=== PATIENT | female | born 1975 | race Two or more races ===

== ENCOUNTER 2024-05-29 09:36 | Day surgery (SDC) | payer BC ==
[~2024-05-29] VITALS: Ht 167.6 cm; Wt 98.8 kg
[2024-05-29 10:45] LABS: HEMATOCRIT 42.5 % (36.0-47.0); HEMOGLOBIN 13.9 g/dl (12.0-15.5); MEAN CORPUSCULAR HEMOGLOBIN 30.2 pg (27.0-33.0); MEAN CORPUSCULAR HGB CONC 32.7 g/dl (32.0-36.5); MEAN CORPUSCULAR VOLUME 92.4 fl (80.0-96.0); PLATELET COUNT, AUTOMATED 397 10^3/uL (150-450); WHITE BLOOD COUNT 7.1 10^3/uL (4.0-10.0)
[2024-05-29] MEDS ORDERED: METOCLOPRAMIDE INJ 10MG/2ML VIAL As Ordered ONE (11:50)
[2024-05-29] MEDS ORDERED: fentaNYL 100 MCG/2 ML INJECTION As Ordered ONE (11:50)
[2024-05-29] MEDS ORDERED: KETOROLAC 60MG 2ML VIAL As Ordered ONE (11:50)
[2024-05-29] MEDS ORDERED: dexmedeTOMIDine (4MCG/ML)200MCG/50ML BTL (PRECEDEX) As Ordered ONE (11:50)
[2024-05-29] MEDS ORDERED: propofoL 200 MG/20 ML VIAL As Ordered ONE (11:50)
[2024-05-29] MEDS ORDERED: ONDANSETRON 4MG 2ML VIAL As Ordered ONE (11:50)
[2024-05-29] MEDS ORDERED: MIDAZOLAM INJ 2MG/2ML VIAL As Ordered ONE (11:50)
[2024-05-29] MEDS ORDERED: ACETAMINOPHEN 1000MG 100ML IV BAG As Ordered ONE (11:50)
[2024-05-29] MEDS ORDERED: LIDOCAINE 2% 100MG/5ML SDV (FOR ANES.) As Ordered ONE (11:50)
[2024-05-29] MEDS ORDERED: IBUP-1022 PO (12:55)
[2024-05-29] MEDS ORDERED: OXYC1TAB23 PO (12:56)
[2024-05-29] MEDS ORDERED: COLA100C5 PO (12:57)
[2024-05-29 13:13] VITALS: BP 111/78; TEMP 97.9; O2SAT 96
== END 2024-05-29 13:20 | disposition home or self-care (01) ==
LOC: M SDC 09:36
PROVIDERS: ATTEND Specialist
DX: N90.69 Other specified hypertrophy of vulva (principal); L30.8 Other specified dermatitis; N90.4 Leukoplakia of vulva; R23.4 Changes in skin texture
CPT/HCPCS: 11423; 36415; 81025; 85027; 88304; C1727; J0131; J0665; J1100; J1885; J2250; J2405; J2765; J3010

== ENCOUNTER 2024-06-03 09:32 | Emergency (ER) | payer BC ==
[~2024-06-03] VITALS: Ht 167.6 cm; Wt 100.8 kg
[~2024-06-03 09:32] MED LIST: COLA100C5 PO; IBUP-1022 PO; OXYC1TAB23 PO
[2024-06-03 09:39] VITALS: BP 139/85; TEMP 97.7; O2SAT 98
== END 2024-06-03 14:51 | disposition home or self-care (01) ==
LOC: M ED 09:32
DX: K59.00 Constipation, unspecified (principal); Z79.1 Long term (current) use of non-steroidal anti-inflammatories (NSAID); Z79.899 Other long term (current) drug therapy